=== PATIENT | male | born 1935 | race Caucasian/White ===

== ENCOUNTER 2018-02-07 09:35 | Day surgery (SDC) | payer OTHER, MEDICARE ==
[2018-02-06 12:33] LABS: BASOPHILS % (AUTO) 0.4 % (0.0-5.0); EOSINOPHILS % (AUTO) 0.6 % (0.0-8.0); HEMATOCRIT 41.9 % (42-54); LYMPHOCYTES % (AUTO) 11.6 % (21.0-51.0); MEAN CORPUSCULAR HEMOGLOBIN 30.7 pg (27.0-33.0); MEAN CORPUSCULAR HGB CONC 33.8 g/dL (32.0-36.0); MEAN CORPUSCULAR VOLUME 90.9 fL (79-99); MONOCYTES % (AUTO) 9.6 % (3.0-13.0); NEUTROPHILS % (AUTO) 77.8 % (40.0-77.0); PLATELET COUNT (AUTO) 173 K/uL (130-400); RED BLOOD CELL COUNT(AUTO) 4.61 MIL/uL (4.50-6.20); RED CELL DISTRIBUTION WIDTH 13.5 % (11.0-15.5); WHITE BLOOD COUNT (AUTO) 5.6 K/uL (4.8-10.8)
[2018-02-06 12:39] LABS: POTASSIUM 4.7 mmol/L (3.5-5.1)
[2018-02-06 13:04] VITALS: BP 100/60
[2018-02-06] MEDS: CEFTRIAXONE SODIUM 1 GM IVP SCH (14:00)
[~2018-02-07] VITALS: Ht 180.3 cm; Wt 74.4 kg
[2018-02-07] VITALS (14 sets, daily range): BP systolic 101–121; BP diastolic 49–71
[~2018-02-07 09:35] MED LIST: AMIT10TA6 PO; APIX2.5T PO; ATOR20TA65 PO; TERA10CA4 PO; ZOLP10TA2 PO
[2018-02-07] MEDS ORDERED: LACTATED RINGERS 1000ML 1,000 ML IV ONE (09:37)
[2018-02-07] MEDS ORDERED: MIDAZOLAM HCL 1 MG/ML 2ML VIAL ONE ×2 (10:07→10:51)
[2018-02-07] MEDS ORDERED: DEXAMETHASONE SOD PHOSPHATE 10MG/ML 1ML VIAL ONE ×2 (10:51→10:56)
[2018-02-07] MEDS ORDERED: GLYCOPYRROLATE 0.2 MG/ML 5 ML VIAL ONE (10:51)
[2018-02-07] MEDS ORDERED: LIDOCAINE PF 2% 5ML ABBOJECT ONE (10:51)
[2018-02-07] MEDS ORDERED: FENTANYL CITRATE PF 50 MCG/1 ML 2ML VIAL ONE (10:51)
[2018-02-07] MEDS ORDERED: SUCCINYLCHOLINE CHLORIDE 20 MG/ML 10 ML VIAL ONE (10:56)
[2018-02-07] MEDS ORDERED: ROCURONIUM BROMIDE 10MG/1ML 5ML VL ONE ×2 (10:56→12:09)
[2018-02-07] MEDS ORDERED: ISOVUE-370 50ML VIAL IV ONE (11:13)
[2018-02-07] MEDS ORDERED: PROPOFOL 10 MG/ML 20ML VIAL IV ONE (11:19)
[2018-02-07] MEDS: CEFTRIAXONE SODIUM 1 GM IVP SCH (11:24)
[2018-02-07] MEDS ORDERED: EPHEDRINE SULFATE 50 MG/ML AMPULE ONE (11:35)
[2018-02-07] MEDS ORDERED: ESMOLOL HCL 10 MG/ML 10 ML VIAL ONE (12:08)
[2018-02-07] MEDS ORDERED: NEOSTIGMINE METHYLSULFATE 1MG/ML IV ONE (12:09)
[2018-02-07] MEDS ORDERED: SODIUM CHLORIDE 0.9% 10 ML VIAL ONE (12:10)
[2018-02-07] MEDS ORDERED: MEPERIDINE-PF 25 MG/ML SYG ONE ×2 (13:23→13:41)
[2018-02-07] MEDS ORDERED: OPIUM/BELLADONNA ALKALOIDS 1 EACH SUPP.RECT RC ONE (13:53)
[2018-02-07] MEDS ORDERED: PHENAZOPYRIDINE HCL 200 MG TABLET ONE (14:37)
== END 2018-02-07 16:00 | disposition home or self-care (01) ==
LOC: DAH 09:35
PROVIDERS: ATTEND Urology
DX: C67.9 Malignant neoplasm of bladder, unspecified (principal); I45.19 Other right bundle-branch block; K21.9 Gastro-esophageal reflux disease without esophagitis; I25.10 Atherosclerotic heart disease of native coronary artery without angina pectoris; Z87.891 Personal history of nicotine dependence; Z79.01 Long term (current) use of anticoagulants; Z95.1 Presence of aortocoronary bypass graft; Z79.899 Other long term (current) drug therapy
CPT/HCPCS: 36415; 52235; 74430; 80048; 85025; 88305; 88307; 93005; 96374; A4218; A4344; A4354; A4358; A4510; A5113; C1758; C1769; J0330; J0696; J1100 ×2; J2001; J2175 ×2; J2250 ×2; J2704; J2710; J3010; J3490 ×5; J7030; J7120; Q9967

== ENCOUNTER 2018-03-07 07:56 | Day surgery (SDC) | payer OTHER, MEDICARE ==
[2018-03-05 16:18] LABS: BASOPHILS % (AUTO) 0.4 % (0.0-5.0); EOSINOPHILS % (AUTO) 0.7 % (0.0-8.0); HEMATOCRIT 37.2 % (42-54); LYMPHOCYTES % (AUTO) 11.9 % (21.0-51.0); MEAN CORPUSCULAR HEMOGLOBIN 30.5 pg (27.0-33.0); MEAN CORPUSCULAR HGB CONC 33.9 g/dL (32.0-36.0); MONOCYTES % (AUTO) 9.8 % (3.0-13.0); NEUTROPHILS % (AUTO) 77.2 % (40.0-77.0); PLATELET COUNT (AUTO) 165 K/uL (130-400); RED BLOOD CELL COUNT(AUTO) 4.13 MIL/uL (4.50-6.20); RED CELL DISTRIBUTION WIDTH 13.5 % (11.0-15.5); WHITE BLOOD COUNT (AUTO) 6.4 K/uL (4.8-10.8)
[2018-03-05 16:19] VITALS: BP 103/57
[2018-03-05 16:38] LABS: CREATININE 1.1 mg/dL (0.5-1.5); POTASSIUM 4.5 mmol/L (3.5-5.1)
[2018-03-07] VITALS (15 sets, daily range): BP systolic 111–172; BP diastolic 54–82
[~2018-03-07] VITALS: Ht 182.9 cm; Wt 77.0 kg
[~2018-03-07 07:56] MED LIST changes: +MITOMYCIN 40 MG VIAL SCH
[2018-03-07] MEDS ORDERED: LACTATED RINGERS 1000ML 1,000 ML IV ONE (08:29)
[2018-03-07] MEDS: CEFAZOLIN SODIUM 1 GM VIAL IVP SCH ×2 (08:30→10:25)
[2018-03-07] MEDS ORDERED: LIDOCAINE PF 2% 5ML ABBOJECT ONE (10:26)
[2018-03-07] MEDS ORDERED: DEXAMETHASONE SOD PHOSPHATE 10MG/ML 1ML VIAL ONE (10:26)
[2018-03-07] MEDS ORDERED: PROPOFOL 10 MG/ML 20ML VIAL IV ONE (10:26)
[2018-03-07] MEDS ORDERED: ONDANSETRON HCL 4 MG/2 ML VIAL ONE (10:26)
[2018-03-07] MEDS ORDERED: GLYCOPYRROLATE 0.2 MG/ML 5 ML VIAL ONE (10:26)
[2018-03-07] MEDS ORDERED: NEOSTIGMINE 5MG/5ML SYR IV ONE (10:26)
[2018-03-07] MEDS ORDERED: MIDAZOLAM HCL 1 MG/ML 2ML VIAL ONE (10:26)
[2018-03-07] MEDS ORDERED: LIDOCAINE HCL MPF 1% 5ML VIAL ONE (10:27)
[2018-03-07] MEDS ORDERED: FENTANYL CITRATE PF 50 MCG/1 ML 2ML VIAL ONE (10:27)
[2018-03-07] MEDS ORDERED: OPIUM/BELLADONNA ALKALOIDS 1 EACH SUPP.RECT RC ONE (12:03)
[2018-03-07] MEDS ORDERED: PHENAZOPYRIDINE HCL 200 MG TABLET ONE (13:09)
== END 2018-03-07 13:55 | disposition home or self-care (01) ==
LOC: DAH 07:56
PROVIDERS: ATTEND Urology
DX: C67.9 Malignant neoplasm of bladder, unspecified (principal); I25.10 Atherosclerotic heart disease of native coronary artery without angina pectoris; K21.9 Gastro-esophageal reflux disease without esophagitis; Z95.1 Presence of aortocoronary bypass graft; Z79.899 Other long term (current) drug therapy; Z98.890 Other specified postprocedural states; Z87.891 Personal history of nicotine dependence; I48.91 Unspecified atrial fibrillation; J44.9 Chronic obstructive pulmonary disease, unspecified; I10 Essential (primary) hypertension
CPT/HCPCS: 36415; 52204; 80048; 85025; 88305; 93005; A4218; A4344; A4354; A4358; A4510; A4600; J0690; J1100; J2001; J2405; J2704; J2710; J3010; J3490 ×2; J7030; J7120; J9280; J2250